=== PATIENT | male | born 1965 | race Caucasian/White ===

== ENCOUNTER 2016-05-16 10:07 | Emergency (ER) | payer OTHER ==
[~2016-05-16] VITALS: Ht 172.7 cm; Wt 74.4 kg
[~2016-05-16 10:07] MED LIST: HYDR-3533 PO; MELO15TA2 PO
[2016-05-16 10:09] VITALS: BP 116/74; PULSE 70; RESP 16; TEMP 97.6; O2SAT 99
[2016-05-16 10:15] VITALS: BP 109/62; PULSE 68; RESP 16; O2SAT 100
[2016-05-16] MEDS ORDERED: SODIUM CHLOR 0.9% 1000 ML INJ 1,000 ML IV SCH ×2 (10:27→11:45)
[2016-05-16] MEDS ORDERED: LEVOFLOXACIN 750 MG PREMIX INJ 150 ML IV ONE (10:30)
[2016-05-16] MEDS ORDERED: PANTOPRAZOLE SODIUM 40 MG VIAL IVP ONE (10:30)
[2016-05-16] MEDS ORDERED: ONDANSETRON HCL 4 MG/2 ML VIAL IVP ONE (10:30)
[2016-05-16] MEDS ORDERED: HYDROmorphone HCL PF 1 MG/ML VIAL IVS ONE (10:30)
--- NOTE | 2016-05-16 10:33 | PD ---
HPI Chief Complaint: GI Complaint Time Seen by Provider: 10:20 Travel History International Travel<30 days: No Contact w/Intl Traveler<30days: No Traveled to known affect area: No History of Present Illness HPI 51-year-old male complains of abdominal pain. Patient states that the pain started 2 days ago. Patient states the pain is cramping pain and sharp pain diffuse over the abdomen, worse on the left low quadrant of the abdomen. Patient denies any pain radiation. Patient stated he vomited once 2 days ago. Patient started having loose stool this morning. Patient states that the stool was pinkish colored this morning. Patient denies any fever chills. Patient denies any headache. Patient denies any chest pain or shortness of breath. Patient denies any dysuria or frequency. Patient has history of diverticulitis in the past. On a scale of 1-10 the pain is an 8. PFSH Past Medical History Arthritis: No Asthma: No Blood Disorders: No Anxiety: Yes Heart Rhythm Problems: No Cancer: No Cardiac Catheterization: No Cardiovascular Problems: No High Cholesterol: Yes Chemotherapy: No Chest Pain: No Congestive Heart Failure: No COPD: No Diabetes: Yes (INSULIN DEP) Diminished Hearing: No Diverticulitis: Yes Endocrine: Yes Gastrointestinal Disorders: Yes (RECENT BOUT OF DIVERTICULITIS; ACID REFLUX ) GERD: Yes Glaucoma: No Genitourinary: No Hepatitis: No Hiatal Hernia: Yes Hypertension: No Immune Disorder: No Inguinal Hernia: Yes (LEFT SIDE REPAIR) Kidney Stones: No Musculoskeletal: Yes (T4 T5 SHUNT; ARTHRITIS BACK) Neurologic: Yes (CHIARI DISEASE; BALANCE PROBLEM, NUMBNESS ) Psychiatric: Yes (ANXIETY ) Reproductive: No Respiratory: Yes (HX ASTHMA, SLEEP APNEA WITH CPAP) Migraines: No Myocardial Infarction: No Radiation Therapy: No Renal Failure: No Seizures: No Sickle Cell Disease: No Sleep Apnea: No Thyroid Disease: No Ulcer: No Past Surgical History Abdominal Surgery: Yes (GALLBLADDER SURGERY 2000, LEFT INGUINAL HERNIA 1986) AICD: No Arteriovenous Shunt: No Body Medical Devices: SHUNT T4 T5; DURAPATCH Cardiac Surgery: No Cholecystectomy: Yes Coronary Artery Bypass Graft: No Ear Surgery: No Endocrine Surgery: No Eye Surgery: No Genitourinary Surgery: No Gynecologic Surgery: No Insulin Pump: No Joint Replacement: No Neurologic Surgery: Yes (NECK AND BRAINSTEM SURGERY IN 2000) Oral Surgery: No Pacemaker: No Thoracic Surgery: Yes (SHUNT SURGERY T4-T5 1979, CERVICAL ) Other Surgery: Yes (THORACIC SHUNT 1979, gastric bypass) Social History Alcohol Use: Yes (OCCAS. BEER AND WINE) Tobacco Use: Yes (OCCAS. CIGARS) Substance Use: No Allergies-Medications (Allergen,Severity, Reaction): Coded Allergies: Adhesives (Verified Allergy, Severe, SKIN BREAKDOWN, 05/16/16) Claforan (Verified Allergy, Intermediate, 05/16/16) questionable reaction to claforan in OR - benadryl given by anesthesia Flagyl (Verified Allergy, Intermediate, RASH, ITCHING, LEGS SWELL, 05/16/16) Ativan (Verified Allergy, Mild, HEADACHE AND NAUSEA, 05/16/16) TERRIBLE HEADACHE FOLLOWED BY NAUSEA Reported Meds & Prescriptions Reported Meds & Active Scripts Active Reported Xanax (Alprazolam) 0.25 Mg Tab 0.25 Mg PO Q4H PRN Review of Systems General / Constitutional: No: Fever Eyes: No: Visual changes HENT: No: Headaches Cardiovascular: No: Chest Pain or Discomfort Respiratory: No: Shortness of Breath Gastrointestinal: Positive: Abdominal Pain Genitourinary: No: Dysuria Musculoskeletal: No: Pain Skin: No Rash Neurologic: No: Weakness Psychiatric: No: Depression Endocrine: No: Polydipsia Hematologic/Lymphatic: No: Easy Bruising Physical Exam Narrative GENERAL: Well-nourished, well-developed patient. SKIN: Focused skin assessment warm/dry. HEAD: Normocephalic. EYES: No scleral icterus. No injection or drainage. NECK: Supple, trachea midline. No JVD or lymphadenopathy. CARDIOVASCULAR: Regular rate and rhythm without murmurs, gallops, or rubs. RESPIRATORY: Breath sounds equal bilaterally. No accessory muscle use. GASTROINTESTINAL: Abdomen soft, nondistended. Patient has moderate tenderness on palpation left low quadrant of the abdomen. No rebound tenderness. No mass. MUSCULOSKELETAL: No cyanosis, or edema. BACK: Nontender without obvious deformity. No CVA tenderness. Neurologic exam normal. Data Data Last Documented VS Vital Signs Date Time Temp Pulse Resp B/P Pulse Ox O2 Delivery O2 Flow Rate FiO2 05/16/16 12:44 66 16 120/64 99 05/16/16 10:09 97.6 Orders Complete Blood Count With Diff (05/16/16 10:27) Comprehensive Metabolic Panel (05/16/16 10:27) Lipase (05/16/16 10:27) Prothrombin Time / Inr (Pt) (05/16/16 10:27) Act Partial Throm Time (Ptt) (05/16/16 10:27) Urinalysis - C+S If Indicated (05/16/16 10:27) Ct Abd/Pel W Iv Contrast(Rout) (05/16/16 10:27) Iv Access Insert/Monitor (05/16/16 10:27) Ecg Monitoring (05/16/16 10:27) Oximetry (05/16/16 10:27) Ondansetron Inj (Zofran Inj) (05/16/16 10:30) Pantoprazole Inj (Protonix Inj) (05/16/16 10:30) Sodium Chlor 0.9% 1000 Ml Inj (Ns 1000 M (05/16/16 10:27) Hydromorphone Pf Inj (Dilaudid Pf Inj) (05/16/16 10:30) Levofloxacin 750 Mg Premix Inj (Levaquin (05/16/16 10:30) Hydromorphone Pf Inj (Dilaudid Pf Inj) (05/16/16 11:45) Sodium Chlor 0.9% 1000 Ml Inj (Ns 1000 M (05/16/16 11:45) Ondansetron Inj (Zofran Inj) (05/16/16 12:30) Iohexol 350 Inj (Omnipaque 350 Inj) (05/16/16 12:45) Labs Laboratory Tests Test 05/16/16 05/16/16 10:15 11:25 White Blood Count 5.3 TH/MM3 Red Blood Count 4.18 MIL/MM3 Hemoglobin 14.0 GM/DL Hematocrit 40.7 % Mean Corpuscular Volume 97.3 FL Mean Corpuscular Hemoglobin 33.4 PG Mean Corpuscular Hemoglobin 34.3 % Concent Red Cell Distribution Width 12.2 % Platelet Count 221 TH/MM3 Mean Platelet Volume 8.2 FL Neutrophils (%) (Auto) 54.3 % Lymphocytes (%) (Auto) 33.0 % Monocytes (%) (Auto) 9.2 % Eosinophils (%) (Auto) 2.3 % Basophils (%) (Auto) 1.2 % Neutrophils # (Auto) 2.9 TH/MM3 Lymphocytes # (Auto) 1.7 TH/MM3 Monocytes # (Auto) 0.5 TH/MM3 Eosinophils # (Auto) 0.1 TH/MM3 Basophils # (Auto) 0.1 TH/MM3 CBC Comment DIFF FINAL Differential Comment Prothrombin Time 10.2 SEC Prothromb Time International 0.9 RATIO Ratio Activated Partial 25.9 SEC Thromboplast Time Sodium Level 144 MEQ/L Potassium Level 4.0 MEQ/L Chloride Level 108 MEQ/L Carbon Dioxide Level 26.6 MEQ/L Anion Gap 9 MEQ/L Blood Urea Nitrogen 14 MG/DL Creatinine 0.78 MG/DL Estimat Glomerular Filtration 105 ML/MIN Rate Random Glucose 93 MG/DL Calcium Level 8.6 MG/DL Total Bilirubin 0.6 MG/DL Aspartate Amino Transf 23 U/L (AST/SGOT) Alanine Aminotransferase 48 U/L (ALT/SGPT) Alkaline Phosphatase 72 U/L Total Protein 7.2 GM/DL Albumin 4.0 GM/DL Lipase 124 U/L Urine Collection Type CLEAN CATCH Urine Color YELLOW Urine Turbidity CLEAR Urine pH 7.0 Urine Specific [place] 1.007 Urine Protein NEG mg/dL Urine Glucose (UA) NEG mg/dL Urine Ketones NEG mg/dL Urine Occult Blood NEG Urine Nitrite NEG Urine Bilirubin NEG Urine Leukocyte Esterase NEG Urine RBC 0-3 /hpf Urine Squamous Epithelial 0-5 /hpf Cells Microscopic Urinalysis Comment CULT NOT INDICATED Urine Collection Time 11:25 [facility] Medical Decision Making Medical Screen Exam Complete: Yes Emergency Medical Condition: Yes Interpretation(s) 11:45 AM. CBC within normal limit. CMP within normal limit. UA is negative. 1426 PM. Last Impressions Abdomen/Pelvis CT 05/16/16 1027 Signed Impressions: Service Date/Time: Monday, May 16, 2016 12:22 - CONCLUSION: 1. No evidence of acute abdominal or pelvic process. No masses are identified. Myke Washington MD Differential Diagnosis Differential diagnosis including diverticulitis, UTI, pyelonephritis, nephrolithiasis. Narrative Course 51-year-old male with left low quadrant abdominal pain. History of diverticulitis. Normal saline solution 1 L IV bolus. Dilaudid 0.5 mg IV. Zofran 4 mg IV. Levaquin 750 mg IV. Dilaudid 1 mg IV. Diagnosis Primary Impression: Abdominal pain Qualified Code: R10.30 - Lower abdominal pain Additional Impression: Gastroenteritis Patient Instructions: General Instructions Additional Instructions: Patient has Levaquin prescription called into pharmacy by private physician. Advised patient to follow up with local physician. Return if worse. Disposition: 01 DISCHARGE HOME Condition: Stable Vinod Galaviz MD May 16, 2016 10:33
[2016-05-16 10:47] LABS: AUTOMATED NEUTROPHIL # 2.9 TH/MM3 (1.8-7.7); BASOPHIL # 0.1 TH/MM3 (0-0.2); BASOPHIL % 1.2 % (0.0-2.0); EOSINOPHIL # 0.1 TH/MM3 (0-0.4); EOSINOPHIL % 2.3 % (0.0-4.0); HEMATOCRIT 40.7 % (39.0-51.0); HEMO FLAGS DIFF FINAL; LYMPHOCYTE # 1.7 TH/MM3 (1.0-4.8); MEAN CELL VOLUME 97.3 FL (80.0-100.0); MEAN CORPUSCULAR HEMOGLOBIN 33.4 PG (27.0-34.0); MEAN CORPUSCULAR HGB CONC 34.3 % (32.0-36.0); MONO % 9.2 % (0.0-8.0); NEUT % 54.3 % (16.0-70.0); PLATELET COUNT 221 TH/MM3 (150-450); RED BLOOD COUNT 4.18 MIL/MM3 (4.50-5.90); RED CELL DISTRIBUTION WIDTH 12.2 % (11.6-17.2); WHITE BLOOD COUNT 5.3 TH/MM3 (4.0-11.0)
[2016-05-16 11:00] LABS: CHLORIDE 108 MEQ/L (98-107); SODIUM (NA) 144 MEQ/L (136-145)
[2016-05-16 11:04] LABS: APTT (PATIENT) 25.9 SEC (24.3-30.1); INTERNATIONAL NORMALIZED RATIO 0.9 RATIO; PROTHROMBIN TIME - PATIENT 10.2 SEC (9.8-11.6)
[2016-05-16 11:05] LABS: ANION GAP 9 MEQ/L (5-15); BICARBONATE 26.6 MEQ/L (21.0-32.0); BLOOD UREA NITROGEN 14 MG/DL (7-18)
[2016-05-16 11:08] LABS: ALT (GPT) 48 U/L (12-78); AST (GOT) 23 U/L (15-37); GLOMERULAR FILTRATION RATE 105 ML/MIN (>89)
[2016-05-16 11:09] LABS: TOTAL BILIRUBIN ADULT 0.6 MG/DL (0.2-1.0)
[2016-05-16 11:11] LABS: ALKALINE PHOSPHATASE 72 U/L (45-117)
[2016-05-16] MEDS ORDERED: ALPR.25 PO (11:24)
[2016-05-16 11:25] VITALS: BP 136/69; PULSE 57; RESP 14; O2SAT 98
[2016-05-16 11:31] LABS: BLOOD, URINE NEG (NEG); GLUCOSE,URINE NEG (NEG); KETONE, URINE NEG (NEG); NITRITE,URINE NEG (NEG)
[2016-05-16 11:41] LABS: METHOD OF COLLECTION CLEAN CATCH
[2016-05-16 11:42] LABS: COMMENT (UR) CULT NOT INDICATED; CULTURE IF INDICATED CULT NOT INDICATED; RBC, URINE 0-3 /hpf (0-3); SQUAMOUS EPITHELIAL CELL URINE 0-5 /hpf (0-5); URINE COLOR YELLOW (YELLW/STRAW)
[2016-05-16] MEDS ORDERED: HYDROmorphone HCL PF 1 MG/ML VIAL IV PUSH ONE (11:45)
[2016-05-16] MEDS ORDERED: ONDANSETRON HCL 4 MG/2 ML VIAL IV PUSH ONE (12:30)
[2016-05-16 12:44] VITALS: BP 120/64; PULSE 66; RESP 16; O2SAT 99
[2016-05-16] MEDS ORDERED: IOHEXOL 350 MG/ML 10 ML VIAL (for RAD DIAG) IV ONE (12:45)
--- NOTE | 2016-05-16 14:06 | RADHPO ---
EXAM DATE/TIME: 05/16/2016 12:22 [place] COMPARISON: No previous studies available for comparison. INDICATIONS : Left lower quadrant pain. IV CONTRAST: 90 cc Omnipaque 350 (iohexol) IV ORAL CONTRAST: No oral contrast ingested. RADIATION DOSE: 8.72 CTDIvol (mGy) MEDICAL HISTORY : Diverticulitis. Gastroesophageal reflux disease. Diabetes. Medullary sponge kidney. SURGICAL HISTORY : Cholecystectomy. ENCOUNTER: Initial ACUITY: 2 days PAIN SCALE: 4/10 LOCATION: Left lower quadrant TECHNIQUE: Volumetric scanning of the abdomen and pelvis was performed. Using automated exposure control and ad justment of the mA and/or kV according to patient size, radiation dose was kept as low as reasonably achievable to obtain optimal diagnostic quality images. FINDINGS: Examination of the lung bases demonstrates no abnormality. No pleural fluid is identified. No pulmona ry nodules are present. The liver and spleen are normal in size and no focal defects are identified. The gallbladder is absent. The pancreas demonstrates normal contour without evidence of mass or ducta l dilatation. There is previous gastrojejunostomy. The adrenal glands and kidneys appear normal bilat erally. No hydronephrosis or mass lesions are identified. No abnormally enlarged lymph nodes are iden tified. Examination of the pelvis demonstrates no evidence of free fluid or pelvic mass. No abnormally enlarg ed inguinal or retroperitoneal lymph nodes are present. The bladder is unremarkable. CONCLUSION: 1. No evidence of acute abdominal or pelvic process. No masses are identified. Myke Washington MD on May 16, 2016 at 13:50 Board Certified Radiologist. This report was verified electronically.
[2016-05-16 14:36] VITALS: BP 120/64
== END 2016-05-16 14:49 | disposition home or self-care (01) ==
LOC: PHED 10:07
DX: K52.9 Noninfective gastroenteritis and colitis, unspecified (principal); K57.92 Diverticulitis of intestine, part unspecified, without perforation or abscess without bleeding; K21.9 Gastro-esophageal reflux disease without esophagitis; E78.00 Pure hypercholesterolemia, unspecified; F41.9 Anxiety disorder, unspecified; E11.9 Type 2 diabetes mellitus without complications; I82.0 Budd-Chiari syndrome; G47.30 Sleep apnea, unspecified; F17.290 Nicotine dependence, other tobacco product, uncomplicated
CPT/HCPCS: 74177; 80053; 81001; 83690; 85025; 85610; 85730; 96361; 96365; 96375; 96376; 99284; C9113; J1170; J1956; J2405; J7030; Q9967